=== PATIENT | male | born 1990 | race Caucasian/White ===

== ENCOUNTER 2017-03-01 14:54 | Outpatient (CLI) | payer OTHER ==
--- NOTE | 2017-03-01 16:08 | RAD ---
THREE VIEWS OF THE CERVICAL SPINE: Date: 03-01-17 Comparison: 12-23-16 History: Pain. FINDINGS: Open mouth odontoid view demonstrates a normal appearing dens and C1-2 articulation. Cervical vertebral body height and alignment appears within normal limits. There is no prevertebral soft tissue swelling. There is an obliquely oriented fracture involving the spinus process of the C7 vertebral body, less evident than on the 12-23-16 examination suggesting a degree of interval bridging callus formation. No acute findings are seen. There is mild anterior wedging of the T1 vertebral body, evidence of stable mild anterior wedge comp ression fracture. IMPRESSION: Obliquely oriented spinus process fracture of C7 as detailed above. POS: SHORTY
== END 2017-03-01 14:55 | disposition home or self-care (01) ==
LOC: TBSIIMAG 14:54
PROVIDERS: ATTEND Neurological Surgery
DX: M54.2 Cervicalgia (principal); S12.600A Unspecified displaced fracture of seventh cervical vertebra, initial encounter for closed fracture
CPT/HCPCS: 72040